=== PATIENT | male | born 1950 | race Caucasian/White ===

== ENCOUNTER 2022-12-04 05:20 | Day surgery (SDC) | payer OTHER ==
[~2022-12-04] VITALS: Ht 180.3 cm; Wt 80.7 kg
[2022-12-04] MEDS ORDERED: DEXAMETHASONE SOD PHOSPHATE 4 MG/ML VIAL ONE (08:02)
[2022-12-04] MEDS ORDERED: LR 1,000 ML IV.SOLN IV ONE (08:02)
[2022-12-04] MEDS ORDERED: ONDANSETRON HCL 4 MG/2 ML VIAL ONE (08:02)
[2022-12-04] MEDS ORDERED: SUGAMMADEX SODIUM 200 MG/2 ML VIAL IV ONE (08:02)
[2022-12-04] MEDS ORDERED: ROCURONIUM BROMIDE 10 MG/ML (ZEMURON) ONE (08:02)
[2022-12-04] MEDS ORDERED: LIDOCAINE 2%, 20 ML MDV ONE (08:02)
[2022-12-04] MEDS ORDERED: OXYMETAZOLINE HCL 0.05% NASAL SPRAY NS ONE (08:02)
[2022-12-04] MEDS ORDERED: DESFLURANE 15 MIN GAS INH ONE (08:02)
[2022-12-04] MEDS ORDERED: PROPOFOL 200MG/ 20ML VIAL (DIPRIVAN) IV ONE (08:02)
[2022-12-04] MEDS ORDERED: EPINEPHrine HCL 1 MG/ML VIAL ONE (08:02)
[2022-12-04] MEDS ORDERED: LIDOCAINE/EPI 1% 1:100000 20 ML VIAL ONE (08:02)
[2022-12-04] MEDS ORDERED: NS IRRIG SOLN 1000 ML IR ONE (08:02)
[2022-12-04] MEDS ORDERED: fentaNYL CITRATE 250 MCG/5 ML AMP ONE (08:02)
[2022-12-04] MEDS ORDERED: BACITRACIN ZINC 15 GM TOPICAL OINTMENT TP ONE (08:02)
[2022-12-04] MEDS ORDERED: MIDAZOLAM HCL 5 MG/5 ML VIAL ONE (08:02)
[2022-12-04] MEDS ORDERED: LR 1,000 ML IV SCH (09:00)
[2022-12-04] MEDS ORDERED: HYDROmorphone 1 MG/ML INJ. CARTRIDGE IVP PRN ×2 (09:00)
[2022-12-04] MEDS ORDERED: hydrALAZINE HCL 20 MG/ML VIAL IVP PRN (09:00)
[2022-12-04] MEDS ORDERED: LABETALOL 100 MG/ 20ML VIAL IVP PRN (09:00)
[2022-12-04] MEDS ORDERED: MEPERIDINE HCL/PF 25 MG/ML DISP.SYRIN IVP PRN (09:00)
[2022-12-04] MEDS ORDERED: METOCLOPRAMIDE HCL 10 MG/2 ML VIAL IVP PRN (09:00)
[2022-12-04] MEDS ORDERED: ACETAMINOPHEN I.V. 1000 MG 100 ML IV ONE (09:51)
[2022-12-04 13:56] VITALS: BP_SYST 125
== END 2022-12-04 13:28 | disposition home or self-care (01) ==
LOC: SMU 05:20 → SDS 05:20
PROVIDERS: ATTEND Otolaryngology
DX: J34.89 Other specified disorders of nose and nasal sinuses (principal); J34.2 Deviated nasal septum; D38.5 Neoplasm of uncertain behavior of other respiratory organs; J31.0 Chronic rhinitis; F17.210 Nicotine dependence, cigarettes, uncomplicated
CPT/HCPCS: 31253; 30520; 36415; 87426; 31240; 31256; J0131; 88304; 88305; 88311; J0171; J1100; J2001; J2250; J2405; J2704; J3010; J3490; J7120